=== PATIENT | female | born 1965 | race Native Hawaiian/Other Pacific Islander ===

== ENCOUNTER 2017-06-24 11:09 | Emergency (ER) | payer OTHER ==
[2017-06-24 11:18] VITALS: O2SAT 98
--- NOTE | 2017-06-24 11:22 | C.PDOC ---
History Of Present Illness 51 year old female presents to the emergency department for evaluation of left shoulder pain since yesterday. Pain is worse with movement. Pain is described as dull and achy that is non-radiating. Patient reports that it maybe work related, currently an employee here. Patient admits having a hx of Carpal tunnel. Denies chest pain or SOB. No numbness or weakness. Time Seen by Provider: 06/24/17 11:18 Chief Complaint (Nursing): Upper Extremity Problem/Injury History Per: Patient History/Exam Limitations: no limitations Onset/Duration Of Symptoms: Days (yesterday) Current Symptoms Are (Timing): Still Present Quality: Dull, Aching Severity: Mild Exacerbating Factor(s): Movement Recent travel outside of the [place]: No Additional History Per: Patient Past Medical History Reviewed: Historical Data, Nursing Documentation, Vital Signs Vital Signs: Last Vital Signs Temp 98.1 F 06/24/17 12:05 Pulse 68 06/24/17 12:05 Resp 18 06/24/17 12:05 BP 124/76 06/24/17 12:05 Pulse Ox 98 06/24/17 12:05 - Medical History PMH: HTN Family History: States: Unknown Family Hx - Social History Hx Tobacco Use: No Hx Alcohol Use: No Hx Substance Use: No - Immunization History Hx Tetanus Toxoid Vaccination: Yes Hx Influenza Vaccination: Yes Hx Pneumococcal Vaccination: No Review Of Systems Except As Marked, All Systems Reviewed And Found Negative. Cardiovascular: Negative for: Chest Pain, Palpitations Respiratory: Negative for: Shortness of Breath Musculoskeletal: Positive for: Shoulder Pain (Left) Neurological: Negative for: Weakness, Numbness Physical Exam - Physical Exam Appears: Non-toxic, No Acute Distress Skin: Warm, Dry Head: Atraumatic, Normacephalic Neck: No Midline Cervical Tenderness, No Paracervical Tenderness, No Step Off Deformity, Supple Chest: Symmetrical Cardiovascular: Rhythm Regular, No Murmur Respiratory: Normal Breath Sounds, No Rales, No Rhonchi, No Wheezing Extremity: Tenderness (Tenderness to the anterior and lateral left shoulder.), Capillary Refill (<2secs), No Deformity, No Swelling, Other (Pain with abduction of the left shoulder) Extremity: Bilateral: Normal Color And Temperature Pulses: Left Radial: Normal, Right Radial: Normal Neurological/Psych: Oriented x3, Normal Motor, Normal Sensation, Other (No focal deficit) Gait: Steady ED Course And Treatment O2 Sat by Pulse Oximetry: 98 (RA) Pulse Ox Interpretation: Normal - Other Rad XRAY left shoulder X-Ray: Viewed By Me, Read By Radiologist Interpretation: PROCEDURE: Radiographs of the Left Shoulder. HISTORY: pain to shoulder, no trauma. COMPARISON: No prior. FINDINGS: BONES: Bone alignment and mineralization are normal. There is no acute displaced fracture or bone destruction. JOINTS: There is mild degenerative osteoarthrosis in the acromioclavicular joint. The glenohumeral joint is normal. SOFT TISSUES: There is lobular calcification superior lateral to the humeral head. OTHER FINDINGS: None. IMPRESSION: No acute fracture or dislocation. Lobular periarticular calcifications superolateral to the humeral head may represent calcific tendinitis in the appropriate clinical setting Medical Decision Making Medical Decision Making: left shoulder pain, likely muscle strain vs tendonitis; no trauma, no signs of fracture or dislocatoin XRay ordered. Tylenol PO given Xray shows findings consistent with calficic tendonitis. Arm sling applie.d On reassessment, patient is resting comfortably, with mild improvement of left shoulder pain. Patient remains afebrile, with no bony tenderness, extremity numbness or weakness. Patient is ambulatory in the emergency department with no signs of discomfort. Patient was advised to follow up with physician/clinic in 1 -2 days. Disposition Counseled Patient/Family Regarding: Studies Performed, Diagnosis, Need For Followup - Disposition Referrals: Bassem Lacey MD [Staff Provider] - Disposition: HOME/ ROUTINE Disposition Time: 12:05 Condition: GOOD Additional Instructions: Your xray shows calcific tendonitis of left shoulder. Please apply ice to area 15 minutes three times a day. Take Motrin as needed for pain every 6 hours, with food to not upset stomach. Follow up with orthopedic if pain persists over one week. Instructions: Calcific Tendinitis (ED) Forms: [facility] (Qatari) - POA Present On Arrival: None - Clinical Impression Clinical Impression: Calcific tendinitis - Scribe Statement The provider has reviewed the documentation as recorded by the Scribe Nolvia agudelo All medical record entries made by the Scribe were at my direction and personally dictated by me. I have reviewed the chart and agree that the record accurately reflects my personal performance of the history, physical exam, medical decision making, and the department course for this patient. I have also personally directed, reviewed, and agree with the discharge instructions and disposition.
--- NOTE | 2017-06-24 11:55 | RAD ---
PROCEDURE: Radiographs of the Left Shoulder HISTORY: pain to shoulder, no trauma COMPARISON: No prior. FINDINGS: BONES: Bone alignment and mineralization are normal. There is no acute displaced fracture or bone destruction. JOINTS: There is mild degenerative osteoarthrosis in the acromioclavicular joint. The glenohumeral joint is normal. SOFT TISSUES: There is lobular calcification superior lateral to the humeral head. OTHER FINDINGS: None. IMPRESSION: No acute fracture or dislocation. Lobular periarticular calcifications superolateral to the humeral head may represent calcific tendinitis in the appropriate clinical setting
[2017-06-24 12:12] VITALS: BP 124/76; PULSE 68; RESP 18; TEMP 98.1
== END 2017-06-24 12:16 | disposition home or self-care (01) ==
LOC: C.ER 11:09
DX: M75.32 Calcific tendinitis of left shoulder (principal)

== ENCOUNTER 2017-10-02 10:03 | Emergency (ER) | payer OTHER ==
[2017-10-02 10:10] VITALS: BP 148/91; PULSE 71; RESP 18; TEMP 98.3; O2SAT 98
--- NOTE | 2017-10-02 11:17 | C.PDOC ---
History Of Present Illness 51 y/o female presents to ED with complaints of cough and congestion for 4 days. Patient states she initially had fever that resolved and states she has been taking Aleve with no improvement. Patient admits to receiving flu vaccine this year and denies sick contacts, recent travel, sob, chest pain or any other complaints at this time. Time Seen by Provider: 10/02/17 10:54 Chief Complaint (Nursing): ENT Problem History Per: Patient History/Exam Limitations: no limitations Onset/Duration Of Symptoms: Days Current Symptoms Are (Timing): Still Present Associated Symptoms: Cough, Nasal Congestion Past Medical History Reviewed: Historical Data, Nursing Documentation, Vital Signs Vital Signs: Last Vital Signs Temp 98.3 F 10/02/17 10:08 Pulse 71 10/02/17 10:08 Resp 18 10/02/17 10:08 BP 148/91 H 10/02/17 10:08 Pulse Ox 98 10/02/17 11:19 - Medical History PMH: HTN Surgical History: No Surg Hx Family History: States: No Known Family Hx - Social History Hx Tobacco Use: No Hx Alcohol Use: No Hx Substance Use: No - Immunization History Hx Tetanus Toxoid Vaccination: Yes Hx Influenza Vaccination: Yes Hx Pneumococcal Vaccination: No Review Of Systems Except As Marked, All Systems Reviewed And Found Negative. ENT: Positive for: Nose Congestion Respiratory: Positive for: Cough Physical Exam - Physical Exam Appears: Non-toxic, No Acute Distress Skin: Warm, Dry, No Rash Head: Atraumatic, Normacephalic Eye(s): bilateral: Normal Inspection Ear(s): Bilateral: Normal Oral Mucosa: Moist Throat: Normal, No Erythema, No Exudate Neck: Normal ROM, Supple Cardiovascular: Rhythm Regular Respiratory: Normal Breath Sounds, No Rales, No Rhonchi, No Wheezing Gastrointestinal/Abdominal: Soft, No Tenderness, No Guarding, No Rebound Neurological/Psych: Oriented x3 ED Course And Treatment O2 Sat by Pulse Oximetry: 98 (RA) Pulse Ox Interpretation: Normal Medical Decision Making Medical Decision Making: Assessment- Viral illness Disposition Counseled Patient/Family Regarding: Studies Performed, Diagnosis, Need For Followup, Rx Given - Disposition Disposition: HOME/ ROUTINE Disposition Time: 11:52 Condition: STABLE Additional Instructions: follow up with your doctor in 2 days call to make an appointment take medications as prescribed return to ED if symptoms worsens or progress Prescriptions: Azithromycin [Zithromax] 250 mg PO DAILY #4 tab Oseltamivir Phosphate [Tamiflu] 75 mg PO BID #10 capsule Instructions: Flu, Acute Bronchitis Forms: [facility] (Bulgarian), Work Excuse - Clinical Impression Clinical Impression: Flu-like symptoms, Bronchitis - Scribe Statement The provider has reviewed the documentation as recorded by the Roniibsari English All medical record entries made by the Ren were at my direction and personally dictated by me. I have reviewed the chart and agree that the record accurately reflects my personal performance of the history, physical exam, medical decision making, and the department course for this patient. I have also personally directed, reviewed, and agree with the discharge instructions and disposition.
--- NOTE | 2017-10-02 11:39 | RAD ---
HISTORY: Cough COMPARISON: No prior. TECHNIQUE: Chest PA and lateral FINDINGS: LUNGS: Minimal bibasilar atelectasis left greater than right 11 PLEURA: No significant pleural effusion identified. No pneumothorax apparent. CARDIOVASCULAR: Normal. OSSEOUS STRUCTURES: Minor multilevel degenerative spondylosis of the thoracic spine VISUALIZED UPPER ABDOMEN: Normal. OTHER FINDINGS: None. IMPRESSION: Minimal bibasilar atelectasis left greater than right
== END 2017-10-02 12:12 | disposition home or self-care (01) ==
LOC: C.ER 10:03
DX: J40 Bronchitis, not specified as acute or chronic (principal)